=== PATIENT | male | born 2000 | race Caucasian/White ===

== ENCOUNTER 2022-12-16 17:57 | Emergency (ER) | payer BC, SELFPAY ==
--- NOTE | ~2022-12-16 | XR_ITS ---
EXAM: XR hip RT 2V w AP pelvis DATE: 12/16/2022 20:35 HISTORY: pain, pt fell on stairs . COMPARISON: None available. FINDINGS: Normal mineralization. No fracture or dislocation. No lytic or blastic lesion. Joint space s are maintained. No erosion or periosteal change. Soft tissues within normal limits. IMPRESSION: No acute osseous finding in the right hip or pelvis. Reviewed, dictated and finalized at location [facility]
[2022-12-16 18:28] VITALS: BP 124/83; PULSE 76; RESP 20; TEMP 37.5; O2SAT 100
[2022-12-16] MEDS: KETOROLAC (*BKC) 60 MG/2 ML VIAL IM (20:05)
--- NOTE | 2022-12-16 20:55 | ED.LOWEXIN ---
HPI - Extremity Injury (Lower) General Chief Complaint: Extremity Injury, Lower Stated Complaint: right leg pain Time Seen by Provider: 12/16/22 19:36 History of Present Illness HPI Narrative: Patient is a 22-year-old male who presents ER with pain to his proximal right thigh. Patient reports earlier today he was swimming and putting a lot of water practicing water polo. This evening he started running up the stairs he had a sudden onset pain and pop in his proximal right thigh. Because severe pain he cannot walk for a while. He is able to get around with an exaggerated limp. No numbness or tingling. Has pain with flexion of his hip. Related Data Allergies Allergy/AdvReac Type Severity Reaction Status Date / Time No Known Allergies Allergy Verified 12/16/22 18:33 Review of Systems Musculoskeletal: Musculoskeletal: Denies arthralgias, Denies joint swelling and Reports muscle cramps Neurologic: Denies focal weakness and Denies numbness PMFSH Past Medical History Medical History (Updated 12/16/22 @ 21:05 by Adin Alaniz MD) Healthy adult male Surgical History Surgical History (Updated 12/16/22 @ 21:05 by Adin Alaniz MD) No history of previous surgery Exam Narrative: GENERAL: Well-appearing, well-nourished, and in no acute distress. HEAD: Normocephalic, atraumatic. HEART: Regular rate and rhythm. Normal peripheral pulses. EXTREMITIES: Right lower extremity with swelling proximal medial thigh inferior to the inguinal crease. None pulsatile. Tender to touch. Has increased pain with passive and active flexion of the hip. Normal range of motion of the knee. No additional reproducible tenderness. SKIN: Warm, dry, no rash. NEURO: Alert and oriented x3. PSYCH: Normal mood and affect. Course Course Emergency Course: Patient informed of results. Suspect abductor brevis strain. Bear weight as tolerated with crutches. Will provide with anti-inflammatories and muscle relaxers. Recommend follow-up with orthopedic surgery. Vital Signs Vital signs: Vital Signs Temperature 99.5 F 12/16/22 18:28 Pulse Rate 76 12/16/22 18:28 Respiratory Rate 20 12/16/22 18:28 Blood Pressure 124/83 12/16/22 18:28 Pulse Oximetry 100 12/16/22 18:28 Oxygen Delivery Room Air 12/16/22 18:28 Temperature 99.5 F 12/16/22 18:28 Pulse Rate 76 12/16/22 18:28 Respiratory Rate 20 12/16/22 18:28 Blood Pressure 124/83 12/16/22 18:28 Pulse Oximetry 100 12/16/22 18:28 Oxygen Delivery Room Air 12/16/22 18:28 Discharge Plan Discharge Clinical Impression: Strain of adductor muscle of thigh Patient Disposition: Home, Self-Care Condition: Stable Instructions: Groin Strain (ED) Additional Instructions: Return to the ER if you suffer new injury, have chest pain or shortness of breath, your leg is swollen and red, you have additional concerns. Follow-up with orthopedic surgery for further treatment evaluation. Bear weight as tolerated. Prescriptions: New cyclobenzaprine 10 mg tablet 10 mg PO TID PRN (Reason: muscle spasm) Qty: 20 0RF naproxen 500 mg tablet 500 mg PO BID Qty: 14 0RF Follow-up/Referrals: PHYSICIAN,[employer]ROAD [employer] REPAIRMAN [Primary Care Provider] - River Elliott MD [Physician] - 1 Week Stand Alone Forms: Work/School Release IP
[2022-12-16] MEDS: CYCLOBENZAPRINE HCL 10 MG TABLET PO (21:10)
== END 2022-12-16 21:37 | disposition home or self-care (01) ==
PROVIDERS: Emergency Provider Emergency Medicine
DX: S76.211A Strain of adductor muscle, fascia and tendon of right thigh, initial encounter (principal); X50.0XXA Overexertion from strenuous movement or load, initial encounter
CPT/HCPCS: 73502; 96372; 99283; A9270; J1885